=== PATIENT | male | born 1965 | race Caucasian/White ===

== ENCOUNTER 2021-04-21 12:58 | Inpatient (IN) ==
[2021-04-21] MEDS ORDERED: HEPARIN 5,000 UNIT/1 ML VIAL ONE ×2 (13:05→13:27)
[2021-04-21] MEDS ORDERED: ONDANSETRON 4 MG/2 ML VIAL ONE (13:05)
[2021-04-21] MEDS ORDERED: MORPHINE 2 MG/1 ML SYRINGE ONE (13:06)
[2021-04-21] MEDS ORDERED: HYDROmorphone 2 MG/1 ML VIAL ONE (13:17)
[2021-04-21] MEDS ORDERED: MIDAZOLAM 2 MG/2 ML VIAL ONE (13:17)
[2021-04-21] MEDS ORDERED: ACETAMINOPHEN 325 MG TABLET PO PRN (13:23)
[2021-04-21] MEDS ORDERED: ONDANSETRON 4 MG/2 ML VIAL IV PRN (13:23)
[2021-04-21] MEDS ORDERED: MORPHINE 2 MG/1 ML SYRINGE IV PRN (13:23)
[2021-04-21] MEDS ORDERED: HEPARIN 1,000 UNIT/1 ML VIAL IV STA (13:32)
[2021-04-21] MEDS ORDERED: ONDANSETRON 4 MG/2 ML VIAL IV STA (13:32)
[2021-04-21] MEDS ORDERED: MORPHINE 2 MG/1 ML SYRINGE IV STA (13:33)
[2021-04-21] MEDS ORDERED: TIROFIBAN 5,000 MCG/100 ML PREMIX IV ONE (13:42)
[2021-04-21 14:03] LABS: Basophils % 0.2 % (0.0-0.8); Eosinophils % 0.1 % (0.00-10.9); Hematocrit 36.7 VOL% (42.0-52.0); Hemoglobin 12.4 GM/DL (14.0-18.0); Immature Granulocytes % 0.3 %; Immature Granulocytes Absolute 0.03 #; Lymphocytes # 0.6 10*3/uL (1.4-4.0); Lymphocytes % 6.7 % (21.2-54.2); Mean Corpuscular HGB Conc 33.8 GM/DL (32-36); Mean Corpuscular Volume 84.8 FL (87-102); Mean Platelet Volume 10.5 FL (9.6-12.0); Monocytes % 4.9 % (1.7-12.7); Neutrophils % 87.8 % (38.7-73.9); Platelet Count 142 T/CUMM (130-400); Red Blood Count 4.33 MC/CUMM (3.8-5.5); Red Cell Distribution Width 12.8 % (9.3-17.3); White Blood Count 8.8 T/CUMM (4-12)
[2021-04-21] MEDS ORDERED: PRASUGREL 10 MG TABLET ONE (14:10)
[2021-04-21 14:17] LABS: Albumin 4.6 G/DL (3.4-5.0); Bilirubin,Total 0.8 MG/DL (0.20-1.00); Calcium 9.9 MG/DL (8.5-10.1); Osmolality,Calculated 286.1 MOS/KG (273-304); Potassium 3.3 MMOL/L (3.5-5.1); Total Protein 7.9 G/DL (6.4-8.2)
[2021-04-21] MEDS ORDERED: LABETALOL 20 MG/4 ML SYRINGE IV ONE (14:17)
[2021-04-21] MEDS ORDERED: carvediloL 3.125 MG TABLET PO ONE (14:33)
[2021-04-21] MEDS ORDERED: TIROFIBAN 5,000 MCG/100 ML PREMIX IV SCH (15:00)
[2021-04-21] MEDS ORDERED: hydrALAZINE 20 MG/1 ML VIAL IV PRN (18:17)
[2021-04-21] MEDS ORDERED: POTASSIUM CHLORIDE 20 MEQ TABLET PO ONE (18:17)
[2021-04-21] MEDS ORDERED: POTASSIUM CHLORIDE RIDER 10 MEQ/100 ML PREMIX IV ONE (18:18)
[2021-04-21] MEDS: carvediloL 3.125 MG TABLET PO SCH (20:03)
[2021-04-22 05:37] LABS: Eosinophils % 0.1 % (0.00-10.9); Hematocrit 37.8 VOL% (42.0-52.0); Hemoglobin 13.6 GM/DL (14.0-18.0); Immature Granulocytes % 0.3 %; Immature Granulocytes Absolute 0.02 #; Lymphocytes # 0.9 10*3/uL (1.4-4.0); Lymphocytes % 12.9 % (21.2-54.2); Mean Corpuscular Volume 91.3 FL (87-102); Mean Platelet Volume 10.2 FL (9.6-12.0); Monocytes % 8.5 % (1.7-12.7); Neutrophils % 78.2 % (38.7-73.9); Platelet Count 176 T/CUMM (130-400); Red Blood Count 4.14 MC/CUMM (3.8-5.5); Red Cell Distribution Width 15.4 % (9.3-17.3); White Blood Count 7.3 T/CUMM (4-12)
[2021-04-22 06:01] LABS: CKMB % 6.7 %
[2021-04-22 06:03] LABS: High Sensitive Troponin I* 3911.5 ng/L (0-78)
[2021-04-22 06:07] LABS: Calcium 8.9 MG/DL (8.5-10.1); Osmolality,Calculated 282.4 MOS/KG (273-304); Potassium 3.8 MMOL/L (3.5-5.1); Risk Ratio 4.58; Thyroid Stimulating Hormone 0.629 uIU/ml (0.358-3.74); VLDL Cholesterol 23.6 MG/DL
[2021-04-22] MEDS: carvediloL 3.125 MG TABLET PO SCH ×2 (08:27→20:18)
[2021-04-22] MEDS: PANTOPRAZOLE 40 MG TABLET PO SCH (08:27)
[2021-04-22] MEDS: PRASUGREL 10 MG TABLET PO SCH (08:27)
[2021-04-22] MEDS ORDERED: ASPIRIN EC 81 MG TABLET PO SCH (09:00)
[2021-04-22] MEDS ORDERED: OLMESARTAN 5 MG TABLET PO ONE (09:49)
[2021-04-22] MEDS: ROSUVASTATIN 20 MG TABLET PO SCH (16:17)
[2021-04-23 05:19] LABS: Basophils % 0.3 % (0.0-0.8); Eosinophils % 0.5 % (0.00-10.9); Hematocrit 36.7 VOL% (42.0-52.0); Hemoglobin 13.3 GM/DL (14.0-18.0); Immature Granulocytes % 0.3 %; Immature Granulocytes Absolute 0.02 #; Lymphocytes # 1.3 10*3/uL (1.4-4.0); Lymphocytes % 20.4 % (21.2-54.2); Mean Corpuscular HGB Conc 36.2 GM/DL (32-36); Mean Corpuscular Volume 92.2 FL (87-102); Mean Platelet Volume 10.6 FL (9.6-12.0); Monocytes % 8.5 % (1.7-12.7); Platelet Count 161 T/CUMM (130-400); Red Blood Count 3.98 MC/CUMM (3.8-5.5); Red Cell Distribution Width 15.5 % (9.3-17.3); White Blood Count 6.3 T/CUMM (4-12)
[2021-04-23 05:34] LABS: Calcium 8.8 MG/DL (8.5-10.1); Osmolality,Calculated 281.5 MOS/KG (273-304); Potassium 3.9 MMOL/L (3.5-5.1)
[2021-04-23] MEDS ORDERED: OLMESARTAN 5 MG TABLET PO SCH (09:00)
[2021-04-23] MEDS ORDERED: CHOLECALCIFEROL 1,000 UNIT TABLET PO SCH (09:00)
[2021-04-23] MEDS ORDERED: ASCORBIC ACID 500 MG TABLET PO SCH (09:00)
[2021-04-23] MEDS: carvediloL 3.125 MG TABLET PO SCH (09:29)
[2021-04-23] MEDS: PANTOPRAZOLE 40 MG TABLET PO SCH (09:29)
[2021-04-23] MEDS: ROSUVASTATIN 20 MG TABLET PO SCH (09:29)
[2021-04-23] MEDS: PRASUGREL 10 MG TABLET PO SCH (09:29)
[2021-04-23] MEDS ORDERED: ASPIRIN EC 81 MG TABLET PO SCH (10:56)
[2021-04-23 14:50] VITALS: BP 145/90
== END 2021-04-23 16:15 | disposition home or self-care (01) | DRG 247 ==
LOC: EDBD → EDUNIT# → N.ED 12:58 → N.ICU 13:12 → N.EDINP 13:23 → N.ICU 14:15 → N.TELEN 04-22 11:40
PROVIDERS: ADMIT Internal Medicine Cardiovascular Disease; ATTEND Internal Medicine Cardiovascular Disease
PROC: CLCCHCL (ICD-10-PCS; 2021-04-21 13:45)